=== PATIENT | male | born 1960 | race Caucasian/White ===

== ENCOUNTER 2024-05-31 08:25 | Outpatient (CLI) | payer OTHER | END 2024-05-31 08:33 | disposition home or self-care (01) | LOC: TOM 08:25 | PROVIDERS: ATTEND General Practice | DX: Z12.11 Encounter for screening for malignant neoplasm of colon (principal) ==

== ENCOUNTER 2025-02-17 08:13 | Outpatient (CLI) | payer OTHER | END 2025-02-17 08:23 | disposition home or self-care (01) | LOC: MRI 08:13 | PROVIDERS: ATTEND General Practice | DX: M54.2 Cervicalgia (principal) | CPT/HCPCS: 72156 ==